=== PATIENT | male | born 1960 | race Caucasian/White ===

== ENCOUNTER 2023-01-28 03:25 | Day surgery (SDC) | payer OTHER, SELFPAY ==
[2023-01-17 10:21] VITALS: BMI 38.8
[2023-01-28 12:24] VITALS: BP 160/86; PULSE 58; RESP 18; TEMP 36.3; O2SAT 99
[2023-01-28] MEDS: LACTATED RINGERS 1,000 ML 150 ML IV CONT (12:41)
--- NOTE | 2023-01-28 12:45 | PM.HPGS ---
History of Present Illness History of Present Illness Consent: Risks, benefits, and alternatives have been discussed and questions answered. Patient agrees to proceed with procedure. Chief complaint: Neoplasia screening Narrative: Dallas Galan is a 62 year old male Presents for screening colonoscopy. Patient reports his weight and appetite are normal. He a cold occasionally has anal seepage. He denies any bleeding. He has no pain or weight loss. Patient had a colonoscopy 10 years ago was unremarkable. He presents today for neoplasia screening. Review of Systems Review of Systems: review of systems noncontributory. [facility] Past Medical History Medical History Arthritis Surgical History Surgical History Cholecystectomy planned Umbilical hernia Family History Family History Mother Family history of emphysema Family history of coronary artery disease Family history of congestive heart failure Hypertension Cancer Father Family history of coronary artery disease Heart disease Alcoholism Grandparent Diabetes mellitus Social History Social History Smoking status: Never smoker Second hand tobacco smoke exposure: No Alcohol intake: current Drinks per week: 14 Alcohol use details: beer Substance use: never Substance use type: does not use Living arrangements: with family Occupation/Education: occupation 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 Agree to blood products: Yes Meds Home Medications and Allergies Home Medications Medication Instructions Recorded Confirmed Type carvedilol phosphate 20 mg 20 mg PO DAILY 90 days #90 caps 06/02/22 01/28/23 Rx capsule,[id number] multiphase allopurinol 300 mg tablet 300 mg PO DAILY 90 days #90 tabs 10/11/22 01/28/23 Rx atorvastatin 40 mg tablet 40 mg PO DAILY 90 days #90 tabs 10/11/22 01/28/23 Rx diclofenac 75 mg-misoprostol 200 2 tablet PO DAILY 90 days #180 tabs 11/29/22 01/28/23 Rx mcg tablet,immediate,delayed release quetiapine 300 mg tablet See Rx Instructions .Route 11/29/22 01/28/23 Rx .COMPLEX #45 tabs Allergies Allergy/AdvReac Type Severity Reaction Status Date / Time No Known Allergies Allergy Verified 01/28/23 12:22 Vital Signs Vital Signs - 24 hr 01/28/23 12:24 Temperature 97.4 F L Pulse Rate 58 L Respiratory Rate 18 Blood Pressure 160/86 H Pulse Oximetry 99 Oxygen Delivery Room Air Exam Narrative: Physical exam reveals patient to be alert. Vital signs stable. HEENT exam is unremarkable. Patient anicteric. Lungs are clear to auscultation and percussion. Heart without murmur. Abdomen bowel sounds present soft nontender with no organomegaly. Digital external rectal exam is normal. Assessment and Plan Assessment and plan (1) Encounter for screening colonoscopy: Code(s): Z12.11 - Encounter for screening for malignant neoplasm of colon Status: Acute Assessment and Plan: Patient presents for screening colonoscopy. Is been 9 or 10 years since last exam. Appears to have anal seepage. I advised the to increase fiber intake. Will try FiberCon 2 tabs p.o. b.i.d. for this. Further recommendations may be given after endoscopy.
--- NOTE | 2023-01-28 12:58 | WPDANESEPPF ---
Anes - Initial Pre Proc Eval Procedure: Operation Date: 01/28/23 13:30 Proposed Procedures p Colonoscopy - Roge Roman MD Date/Time: 01/28/23 12:58 Surgeon: Roge Roman MD Pre Op Diagnosis: Neoplasia screening Patient Data Age: 62 Gender: M Height: 1.83 m Weight: 123.5 kg Last Vital Signs Temp 97.4 F L 01/28/23 12:24 Pulse 58 L 01/28/23 12:24 Resp 18 01/28/23 12:24 BP 160/86 H 01/28/23 12:24 Pulse Ox 99 01/28/23 12:24 O2 Del Method Room Air 01/28/23 12:24 Allergies Allergy/AdvReac Type Severity Reaction Status Date / Time No Known Allergies Allergy Verified 01/28/23 12:22 Home Medications Medication Instructions Recorded Confirmed Type carvedilol phosphate 20 mg 20 mg PO DAILY 90 days #90 caps 06/02/22 01/28/23 Rx capsule,[id number] multiphase allopurinol 300 mg tablet 300 mg PO DAILY 90 days #90 tabs 10/11/22 01/28/23 Rx atorvastatin 40 mg tablet 40 mg PO DAILY 90 days #90 tabs 10/11/22 01/28/23 Rx diclofenac 75 mg-misoprostol 200 2 tablet PO DAILY 90 days #180 tabs 11/29/22 01/28/23 Rx mcg tablet,immediate,delayed release quetiapine 300 mg tablet See Rx Instructions .Route 11/29/22 01/28/23 Rx .COMPLEX #45 tabs Patient hx anesthesia problems: none Family hx anesthesia problems: none Results Review: All pre-operative results and documents have been reviewed as part of the pre-operative evaluation. COUNTS INCLUDE 234 BEDS AT THE [facility] Past Medical History Medical History Arthritis Surgical History Surgical History Cholecystectomy planned Umbilical hernia Family History Family History Mother Family history of emphysema Family history of coronary artery disease Family history of congestive heart failure Hypertension Cancer Father Family history of coronary artery disease Heart disease Alcoholism Grandparent Diabetes mellitus Social History Social History Smoking status: Never smoker Second hand tobacco smoke exposure: No Alcohol intake: current Drinks per week: 14 Alcohol use details: beer Substance use: never Substance use type: does not use Living arrangements: with family Occupation/Education: occupation 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 Informed Consent: The patient's anesthetic plan and its attendant risks and benefits were discussed with the patient/family/POA. Questions were solicited and answers provided to the satisfaction of the patient/family/POA.
[2023-01-28 13:14] VITALS: BP 136/83; PULSE 60; RESP 16; O2SAT 97
[2023-01-28 13:24] VITALS: BP 129/77; PULSE 58; RESP 18; O2SAT 99
[2023-01-28 13:34] VITALS: BP 139/78; PULSE 56; RESP 18; O2SAT 99
== END 2023-01-28 13:40 | disposition home or self-care (01) ==
PROVIDERS: PCP Nurse Practitioner Family; Visit Provider Internal Medicine Gastroenterology
PROC: 0DJD8ZZ Inspection of Lower Intestinal Tract, Via Natural or Artificial Opening Endoscopic (ICD-10-PCS; CPT 45378; principal; 2023-01-28 13:30)
DX: Z12.11 Encounter for screening for malignant neoplasm of colon (principal); K64.8 Other hemorrhoids; E66.9 Obesity, unspecified; Z68.36 Body mass index [BMI] 36.0-36.9, adult
CPT/HCPCS: 45378; J2704; J7120